=== PATIENT | male | born 1990 | race Caucasian/White ===

== ENCOUNTER 2016-03-18 13:35 | Emergency (ER) | payer OTHER ==
[2016-03-18 13:51] VITALS: BP 138/87; PULSE 67; TEMP 98; BMI 33.0
--- NOTE | 2016-03-18 15:57 | PDOC ---
History of Present Illness - General Chief Complaint: Pain Stated Complaint: LOWER BACK PAIN/GROIN PAIN Time Seen by Provider: 03/18/16 14:45 History Source: Patient - History of Present Illness Timing/Duration: reports: getting worse Quality: reports: other (pressure) Pain Radiation: reports: back Past History - Past Medical History Allergies/Adverse Reactions: Allergies Allergy/AdvReac Type Severity Reaction Status Date / Time No Known Allergies Allergy Verified 03/18/16 13:51 Home Medications: Ambulatory Orders No Home Medications 0 dose .ROUTE UTDICT 08/28/12 Sulfamethoxazole/Trimethoprim [Bactrim Ds -] 1 tab PO BID #14 tablet 03/18/16 - Psycho/Social/Smoking Cessation Hx Suicidal Ideation: No Smoking Status: Yes Smoking History: Current every day smoker Number of Cigarettes Smoked Daily: 10 Information on smoking cessation initiated: No Review of Systems - Review of Systems Constitutional: No: Fever ABD/GI: No: Nausea, Vomiting : Yes: Dysuria. No: Discharge, Frequency, Flank Pain, Hematuria, Testicular Mass, Testicular Swelling, Testicular Pain *Physical Exam - Vital Signs Last Vital Signs Temp Pulse Resp BP Pulse Ox 98 F 67 18 138/87 98 03/18/16 13:47 03/18/16 13:47 03/18/16 13:47 03/18/16 13:47 03/18/16 13:47 - Physical Exam General Appearance: Yes: Appropriately Dressed. No: Apparent Distress HEENT: positive: Normal Voice Neck: positive: Supple Respiratory/Chest: negative: Respiratory Distress Gastrointestinal/Abdominal: positive: Soft. negative: Tender Male Genitalia: positive: normal genitalia, other (unable to fully palpate prostate, no ttp or swelling to perineum). negative: discharge, testicular mass , epididymus tender, inguinal hernia, CVAT, hematuria Musculoskeletal: negative: CVA Tenderness Integumentary: positive: Dry, Warm Neurologic: positive: Fully Oriented, Alert, Normal Mood/Affect Medical Decision Making - Medical Decision Making 03/18/16 15:46 25 yo M, no sig hx, p/w perianal pressure x 1 month that has been constant, worse when sitting down. Also c/o ?dysuria x 3 days, states urine stream is not "normal" and that urine is "dribbling out". No hematuria, penile discharge, testicular pain, swelling, n/v/f/c. No h/o similar sxs and no h/o STDs. Pt well guillaume w/ unremarkable exam, unable to palpate prostate. R/o uti, less likley STD, ?prostate pathology. Will send ua and get pelvic/bladder US to better evaluate prostate 03/18/16 16:03 03/18/16 18:12 Ua neg. US read as mod post-void residual of 41cc w/ +b/l ureteral jets seen w/ no intrinsic bladder ab/nl and non-enlarged prostate. Will contact and arrange f/u for further eval 03/18/16 18:46 Case d/w Dr Hatch who states PVR of 41 cc is not significant. Rec course of bactrim for possible prostatitis and that pt should f/u in office *DC/Admit/Observation/Transfer Diagnosis at time of Disposition: Dysuria - Discharge Dispostion Disposition: HOME Condition at time of disposition: Good - Prescriptions Prescriptions: Sulfamethoxazole/Trimethoprim [Bactrim Ds -] 1 tab PO BID #14 tablet - Referrals Referrals: Sascha Hatch MD [Staff Physician] - - Patient Instructions Additional Instructions: Please follow with Dr Hatch at [phone]
[2016-03-18 18:08] LABS: URINE APPEARANCE CLEAR; URINE BILIRUBIN NEGATIVE (NEGATIVE); URINE BLOOD NEGATIVE (NEGATIVE); URINE COLOR STRAW; URINE GLUCOSE (UA) NEGATIVE (NEGATIVE); URINE KETONE NEGATIVE (NEGATIVE); URINE LEUK ESTERASE NEGATIVE (NEGATIVE); URINE NITRITE NEGATIVE (NEGATIVE); URINE PROTEIN NEGATIVE (NEGATIVE); URINE UROBILINOGEN NEGATIVE E.U./dl (0.2-1.0)
== END 2016-03-18 18:52 | disposition home or self-care (01) ==
LOC: JERFT 13:35
DX: R30.0 Dysuria (principal); F17.210 Nicotine dependence, cigarettes, uncomplicated
CPT/HCPCS: 36415; 76856-TC; 81003; 87086; 87491; 87591; 99281-25

== ENCOUNTER 2020-08-02 20:58 | Emergency (ER) | payer OTHER ==
[2020-08-02 21:08] VITALS: BMI 23.5
[2020-08-02] MEDS ORDERED: MELATONIN 5 MG TABLETS PO ONE (23:51)
[2020-08-02] MEDS ORDERED: MELATONIN 5 MG TABLETS ONE (23:57)
[2020-08-03 00:34] LABS: BASO % 0.6 % (0-2.0); HEMATOCRIT 44.2 % (35.4-49); HEMOGLOBIN 15.2 GM/dL (11.7-16.9); LYMPH % 41.1 % (8-40); MCH 30.5 pg (25.7-33.7); MCHC 34.5 g/dl (32.0-35.9); MEAN CELL VOLUME 88.4 fl (80-96); MEAN PLT VOLUME 10.8 fl (7.5-11.1); MONO % 10.9 % (3.8-10.2); NEUT % 46.4 % (42.8-82.8); PLATELET COUNT 96 K/MM3 (134-434); RDW 13.4 % (11.9-15.9); WHITE BLOOD COUNT 9.8 K/mm3 (4.0-10.0)
[2020-08-03 00:58] LABS: CHLORIDE 102 mmol/L (98-107); SODIUM 136 mmol/L (136-145)
[2020-08-03 00:59] LABS: ALBUMIN 4.3 g/dl (3.4-5.0); ANION GAP 9 MMOL/L (8-16); BLOOD UREA NITROGEN 20.5 mg/dL (7-18); CALCIUM 9.4 mg/dL (8.5-10.1); CO2 26 mmol/L (21-32)
[2020-08-03 01:02] LABS: CREATININE 0.7 mg/dL (0.55-1.3); SGOT/AST 46 U/L (15-37); SGPT/ALT 31 U/L (13-61)
[2020-08-03 01:04] LABS: TOT PROT 7.2 g/dl (6.4-8.2)
[2020-08-03 01:05] LABS: ALK PHOS 106 U/L (45-117)
[2020-08-03 01:15] LABS: GLUCOSE,RANDOM 103 mg/dL (74-106)
[2020-08-03 01:43] LABS: PH,URINE 5.5 (5.0-8.0); URINE APPEARANCE CLEAR; URINE BILIRUBIN NEGATIVE (NEGATIVE); URINE COLOR YELLOW; URINE GLUCOSE (UA) NEGATIVE (NEGATIVE); URINE KETONE TRACE (NEGATIVE); URINE LEUK ESTERASE NEGATIVE (NEGATIVE); URINE NITRITE NEGATIVE (NEGATIVE); URINE PROTEIN NEGATIVE (NEGATIVE)
[2020-08-03 01:50] LABS: URINE AMPHETAMINES NEGATIVE ng/ml (CUTOFF=500)
[2020-08-03 01:51] LABS: COCAINE, UR NEGATIVE ng/ml (CUTOFF=300); METHADONE, UR NEGATIVE ng/ml (CUTOFF=300); OPIATES, URI NEGATIVE ng/ml (CUTOFF=300); PHENCYCLIDINE,URINE NEGATIVE ng/ml (CUTOFF=25); URINE BARBITURATES NEGATIVE ng/ml (CUTOFF=200); URINE BENZODIAZEPINES NEGATIVE ng/ml (CUTOFF=200)
[2020-08-03 06:31] VITALS: TEMP 98.9
[2020-08-03 10:37] VITALS: BP 147/98; PULSE 64
== END 2020-08-03 11:04 | disposition home or self-care (01) ==
LOC: JER 20:58
DX: S00.03XA Contusion of scalp, initial encounter (principal); S09.90XA Unspecified injury of head, initial encounter; F29 Unspecified psychosis not due to a substance or known physiological condition
CPT/HCPCS: 36415; 70450-TC; 80053; 80307; 81003; 85025; 93005; 93010; 99284-25